=== PATIENT | female | born 1960 | race Caucasian/White ===

== ENCOUNTER 2017-01-09 20:13 | Emergency (ER) | payer OTHER ==
[~2017-01-09] VITALS: Ht 170.2 cm; Wt 68.0 kg
[~2017-01-09 20:13] MED LIST: NORCO 10-325 T1 EACH PO; SENOKOT-S1 TA1 PO
[2017-01-09 20:14] VITALS: BP 208/107
[2017-01-09] MEDS ORDERED: METHADOSE40 M1 PO (20:41)
[2017-01-09] MEDS ORDERED: PERCOCET 5-3251 EACH PO (20:43)
== END 2017-01-09 20:53 | disposition home or self-care (01) ==
LOC: ER 20:13
DX: S46.911A Strain of unspecified muscle, fascia and tendon at shoulder and upper arm level, right arm, initial encounter (principal); F17.210 Nicotine dependence, cigarettes, uncomplicated; X50.9XXA Other and unspecified overexertion or strenuous movements or postures, initial encounter; Y93.89 Activity, other specified; Y92.89 Other specified places as the place of occurrence of the external cause; Y99.0 Civilian activity done for income or pay

== ENCOUNTER 2017-02-05 11:46 | Inpatient (IN) | payer BC, OTHER ==
[~2017-02-05] VITALS: Ht 170.2 cm; Wt 71.2 kg
--- NOTE | ~2017-02-05 | EKG ---
[place] [address] [facility] [place] [address] ELECTROCARDIOGRAM REPORT Name: YOUNG GAOTHERON Galloway Room #: 445-P ADM IN M.R.#: [id number] Admission: 02/05/17 Attend Phys: Selena Luther Discharge: Date of : 58 Report #: [id number] THIS REPORT FOR: //name// [facility] ED Test Date: 2017-02-05 Test Time: 12:29:29 Pat Name: PILAR GAO Department: Room: [facility] Gender: F Mixing Engineer: [id number] : 1960 Requested By: Merary Velasquez Order Number: [id number] MD: Jose Gross Measurements Intervals [place] Rate: 40 P: 57 CT: 142 QRS: 24 QRSD: 105 T: 61 QT: 629 QTc: 514 Interpretive Statements Sinus bradycardia Probable LVH with secondary repol abnrm Prolonged QT interval Baseline wander in lead(s) V2 No previous ECG available for comparison Electronically Signed On 02-06-2017 7:49:38 CDT by Jose Gross [email or web address] <ELECTRONICALLY SIGNED> By: Jose Gross MD, [facility] 02/06/17 0749 1229 1229 Jose Gross MD, [facility] /EPI
[~2017-02-05 11:46] MED LIST changes: +METHADOSE40 M1 PO; +PERCOCET 5-3251 EACH PO
[2017-02-05 11:47] VITALS: BP 186/86
[2017-02-05 12:50] LABS: ABSOLUTE NEUTROPHILS 4.4 thou/uL (1.4-8.2); BASOPHILS 0.2 % (0.0-2.0); HEMOGLOBIN 13.7 gm/dL (12.0-15.0); LYMPHOCYTES 17.7 % (24.0-44.0); MCHC 34.3 g/dL (28.0-37.0); MCV 93.2 fL (80.0-100.0); MONOCYTES 4.6 % (1.0-8.0); PLATELET COUNT 211 thou/uL (150-400); POLYS 76.5 % (36.0-66.0); RBC 4.29 mil/uL (4.20-5.00); WBC 5.7 thou/uL (4.0-11.0)
[2017-02-05 12:52] LABS: ANION GAP 7 mmol/L (7-16); BUN 7 mg/dL (7-18); CALCIUM 9.5 mg/dL (8.5-10.1); CHLORIDE 104 mmol/L (98-107); CO2 29 mmol/L (21-32); CREATININE 0.8 mg/dL (0.6-1.0); GLUCOSE 107 mg/dL (74-106); POTASSIUM 3.1 mmol/L (3.5-5.1); SODIUM 140 mmol/L (136-145)
[2017-02-05 12:56] LABS: MANUAL DIFF NO
[2017-02-05 13:01] LABS: ALBUMIN 3.8 g/dL (3.4-5.0); ALKALINE PHOSPHATASE 91 U/L (46-116); PROTIME 10.2 Seconds (9.3-11.4); SGOT 46 U/L (15-37); SGPT 41 U/L (30-65); TOTAL BILIRUBIN 0.6 mg/dL (<0.1-1.0); TOTAL PROTEIN 8.4 g/dL (6.4-8.2); TROPONIN-I < 0.04 ng/mL (<0.04-0.07)
[2017-02-05 15:34] VITALS: BP 156/88
[2017-02-05 19:09] VITALS: BP 163/76
[2017-02-06 03:39] VITALS: BP 163/74
[2017-02-06 07:53] VITALS: BP 170/70
[2017-02-06] MEDS ORDERED: ANTIVERT25 MG PO (10:24)
[2017-02-06] MEDS ORDERED: NORVASC5 M1 PO (10:24)
[2017-02-06] MEDS ORDERED: KEFLEX500 M1 PO (10:24)
[2017-02-06 15:38] VITALS: BP 184/77
[2017-02-06 16:18] VITALS: BP 184/77
== END 2017-02-06 18:37 | disposition home or self-care (01) | DRG 149 ==
LOC: ER 11:46 → EROBS 13:45 → 4S 13:45
PROVIDERS: Physician Assistant
DX: H83.02 Labyrinthitis, left ear (principal); E87.6 Hypokalemia; I10 Essential (primary) hypertension; F17.210 Nicotine dependence, cigarettes, uncomplicated; Z79.899 Other long term (current) drug therapy
CPT/HCPCS: 10100